=== PATIENT | male | born 1955 | race Caucasian/White ===

== ENCOUNTER 2019-08-14 11:31 | Outpatient (CLI) | payer OTHER, SELFPAY ==
--- NOTE | ~2019-08-14 | US_ITS ---
EXAMINATION: US abdomen complete EXAM DATE: 08/14/2019 13:05 INDICATION: Right upper quadrant pain. STAT examination. TECHNIQUE: Multiple grayscale and Doppler images of the complete abdomen were obtained (by a technolo gist who performed the scan) and subsequently reviewed. There is no prior study for comparison. FINDINGS: The abdominal aorta is normal in caliber. Visualized portion IVC is patent. The pancreatic head a nd body are normal in appearance. The pancreatic tail is not visualized. The liver has normal echogenicity and contour. There are no focal liver lesions identified. There is no evidence of intrahepatic biliary duct dilation. Portal venous flow was seen in the hepatopedal , normal direction and has normal Doppler waveform. Common bile duct measures 4 mm, which is normal. Gallbladder is moderately distended with echogenic m aterial, debris inside, edematous and mildly thickened gallbladder wall at 4 mm with small amount per icholecystic fluid. Technologist performing exam reports patient did not demonstrate sonographic Murp hy's sign. Please note that this sign is less reliable in patients who have received pain medication . Right kidney: There is normal contour and echogenicity. It measures 13.5 x 5.9 x 6.4 centimeters. There are no focal renal lesions identified. There is no hydronephrosis. Left kidney: There is normal contour and echogenicity. It measures 12.8 x 6.8 x 6.5 centimeters. T here are no focal renal lesions identified. There is no hydronephrosis. The spleen is borderline enlarged. IMPRESSION: 1. Findings suspicious for acute cholecystitis. 2. Borderline splenomegaly. I discussed findings with DAMON Alanis at 08/14/2019 13:44 GORING CUTTER. Reviewed, dictated and finalized at location B. NG CUTTER
[2019-08-14 14:40] LABS: Alanine Aminotransferase 28 U/L (4-50); Albumin Level 4.2 g/dL (3.5-5.1); Alkaline Phosphatase 111 U/L (38-126); Amylase 88 U/L (30-110); Aspartate Amino Transferase 31 U/L (17-59); Bilirubin,Total 0.8 mg/dL (0.2-1.3); Blood Urea Nitrogen 16 mg/dL (9-20); Calcium 9.7 mg/dL (8.4-10.2); Carbon Dioxide 32 mmol/L (22-30); Chloride 94 mmol/L (98-107); Estimated Glomerular Filt Rate > 60; Glucose 118 mg/dL (75-110); Lipase 252 U/L (23-300); Potassium 3.7 mmol/L (3.4-5.0); Sodium 137 mmol/L (137-145)
== END 2019-08-14 11:32 | disposition home or self-care (01) ==
LOC: ANHIMG 11:34
PROVIDERS: PCP Family Medicine; Visit Provider Physician Assistant Medical
DX: R10.11 Right upper quadrant pain (principal)
CPT/HCPCS: 36415; 76700; 80053; 82150; 83690

== ENCOUNTER 2019-08-14 15:06 | Inpatient (IN) | payer OTHER, SELFPAY ==
[2019-08-14 15:15] VITALS: BP 128/65; PULSE 94; RESP 15; TEMP 36.9; O2SAT 96; BMI 31.9
--- NOTE | 2019-08-14 15:24 | ECG_ITS ---
Measurements Intervals [place] Rate: 97 P: -3 [place]: 131 QRS: 30 QRSD: 93 T: 11 QT: 336 QTc: 428 Interpretive Statements SINUS RHYTHM CONSIDER INFERIOR INFARCT, AGE INDETERMINATE ABNORMAL ECG Electronically Signed On 08-14-2019 18:56:49 HOME ENERGY INSPECTOR by Preet Sharpe D.O.
--- NOTE | 2019-08-14 15:30 | ADMGEN ---
This patient, Randall Stevenson, was admitted to 2 Medical Room 261-01. Patient/family oriented to hospital policies and general routines including ID bracelet, bed and alarms, visiting hours, pain management, procedures, bathroom and other care routines, personal items, smoking policy, room service/diet, and visiting hours. Valuables list has been completed. Information on how to activate the Rapid Response Team has been discussed. Patient/Family are encouraged to report perceived risks to care and to ask questions if they do not understand what they are told or what they should do.
--- NOTE | 2019-08-14 16:37 | PM.IMHP ---
H&P: HPI History of Present Illness Chief complaint: Acute Cholecystitis Narrative: Randall Stevenson is a 63 year old male with a history of diabetes mellitus, hypertension, hyperlipidemia, and testosterone deficiency. He has a history of a burning type of right-sided chest pain and RUQ abdominal pain that started in 2016. He had his initial episode of this type of pain in 2016 and was evaluated at [facility] by our Immigration Manager. He had a full cardiac workup including a treadmill and Lexiscan stress test, echocardiogram, and labs. His entire workup was negative for any cardiac cause of the chest pain. The pain ended up resolving and hew as discharged home. He was told it was possibly pain related to his gallbladder, but he did not have any other issue with this until April of 2018. He had a similar episode but had family social issues going on and the pain resolved without intervention and he did not get evaluated for this at that time. The patient then had no recurrence again until last Tuesday, 10 days ago. He had eaten fried chicken, malay fries, and coleslaw, and a few hours later had a sudden onset of RUQ abdominal pain that radiated to his mid back and right lower chest. He reports aggravating symptoms included palpation. He tried to take Tums, Rolaids, and Pepto [id number]-slqyzeu, which did not alleviate his pain. He also had associated nausea but no vomiting. He then only ate clear liquids and applesauce for the next few days and his pain started to slowly improve. He overall still did not feel well. , 5 days ago, he ate an acutal meal which included a bourbon flavored chicken and rice. Shortly after this meal, he states the pain returned and was severe. He again tried the same [id number] medications without much relief. He had nausea but no vomiting. The pain was the same as all previous occasions. He dealt with this for a few days and the pain was not subsiding, so he called his PCP yesterday and saw a provider in their office today. She sent him for an abdominal ultrasound which showed moderate gallbladder distention with echogenic material, debris inside, edematous and mildly thickened gallbladder wall with a small amount of pericholecystic fluid, concerning for acute cholecystitis. CMP, lipase, and amylase were ordered and were unremarkable. Our service was contacted for the possible acute cholecystitis and the patient is now being directly admitted to the medical floor by Dr. Medley for surgical evaluation. The patient is now seen on the medical floor. He appears comfortable. He states he is still having RUQ burning abdominal pain and points just below his right ribs. He rates his pain at a 4/10 on a pain scale and states it radiates to his back. Denies nausea at this time. Reports having a low-grade fever of 99 F Tuesday, four days ago. No fevers since. Reports little oral intake over the past few days due to the pain and has not had a bowel movement for 2 days. Otherwise, no change in his bowel habits that he is aware of. No other complaints at this time. Review of Systems Review of Systems: All systems reviewed & are unremarkable except as noted in HPI and below Constitutional: Constitutional: Reports as per HPI, Denies chills, Denies excessive sweating, Denies fatigue, Denies headache(s) and Denies weakness Eyes: Eyes: Denies change in vision and Denies eye pain ENT: Denies dysphagia, Denies dizziness, Denies dry mouth, Denies headache(s), Denies hearing loss and Denies mouth pain Cardiovascular: Cardiovascular: Denies chest pain, Denies pedal edema, Denies radiating jaw, neck or arm pain, Denies dyspnea, Denies dyspnea on exertion and Reports other (burning in his right lower chest near RUQ of abdomen) Respiratory: Respiratory: Denies cough, Denies dyspnea, Denies dyspnea on exertion and Denies wheezing Gastrointestinal: Gastrointestinal: Reports as per HPI, Reports abdominal pain (RUQ r/t back), Denies bloating, Reports c
[2019-08-14 16:54] LABS: Basophils Absolute Auto 0.1 K/mm3 (0.0-0.1); Basophils Percent Auto 0.8 % (0.2-1.2); Eosinophils Absolute Auto 0.3 K/mm3 (0-0.3); Eosinophils Percent Auto 2.3 % (0-4.4); Hematocrit 45.2 % (42.0-52.0); Hemoglobin 15.3 g/dL (14.0-18.0); Immature Granulocyte Percent A 0.7 % (0-0.5); Lymphocytes Absolute Auto 2.66 K/mm3 (0.9-3.2); Lymphocytes Percent Auto 19.9 % (18.3-44.2); Mean Corpuscular HGB Conc 33.8 g/dl (32-36); Mean Corpuscular Hemoglobin 29.5 pg (26-34); Mean Corpuscular Volume 87.3 fl (80-100); Mean Platelet Volume 9.5 fl (7.4-10.4); Monocytes Absolute Auto 1.1 K/mm3 (0.1-0.6); Monocytes Percent Auto 8.5 % (2.6-8.5); Neutrophils Absolute Auto 9.1 K/mm3 (1.3-6.7); Neutrophils Percent Auto 67.8 % (45.5-73.1); Platelet Count Result 391 k/mm3 (150-375); Red Blood Count 5.18 M/mm3 (4.6-6.20); Red Cell Distribution Width 12.7 % (11.5-14.5); White Blood Count 13.4 K/mm3 (4.5-10.0)
[2019-08-14] MEDS: SODIUM CHLORIDE 0.9% IV 1,000 ML 100 ML IV CONT (16:56)
[2019-08-14 16:57] VITALS: BMI 31.2
--- NOTE | 2019-08-14 21:30 | WPDCN ---
Assessment and Plan Assessment and plan (1) Cholecystitis: Code(s): K81.9 - Cholecystitis, unspecified Status: Acute Assessment and Plan: Currently on Zosyn for acute cholecystitis. Plan for cholecystectomy tomorrow per Dr. Medley. (2) Type 2 diabetes mellitus without complications: Code(s): E11.9 - Type 2 diabetes mellitus without complications Status: Acute Assessment and Plan: Well controlled with recent A1c of 6.7. Hold oral hypoglycemics at this time. Initiate sliding scale insulin, Accu-Cheks, and hypoglycemic protocol. (3) Essential (primary) hypertension: Code(s): I10 - Essential (primary) hypertension Status: Acute Assessment and Plan: Blood pressures were reviewed and they are well controlled. Continue antihypertensives and monitor closely. (4) Mixed hyperlipidemia: Code(s): E78.2 - Mixed hyperlipidemia Status: Acute Assessment and Plan: Continue home medication. HPI Data of Consult Date/Time: 08/14/19 21:30 Requesting Physician: Isac Medley MD Primary Care Provider: Dion Ryan MD Consult Narrative Narrative: Randall Stevenson is a 63 year old male with hypertension, hyperlipidemia, GERD, and diabetes whom the hospitalist service has been consulted for medical management in the perioperative phase. He was admitted to Dr. Medley earlier today for further treatment of acute cholecystitis. Patient notes that a week ago last Tuesday after eating a large dinner he developed right upper quadrant pain radiating into the back. It is described as squeezing and burning in nature, and was associated with extreme nausea. He has had several other similar episodes and was seen at his primary care provider's office today. Right upper quadrant ultrasound showed findings concerning for acute cholecystitis and he is being admitted in this setting. At the time my evaluation, he is not having any significant pain. He denies fever, chills, sweats, nausea, and vomiting. No chest pain or shortness of breath. No diarrhea. No history of cardiac or pulmonary disease. His medical history is significant for type 2 diabetes, which he states is well controlled with recent A1c of 6.7. He is also on medication for hypertension and hyperlipidemia, both which he believes are well controlled. Review of Systems Review of Systems: All systems reviewed & are unremarkable except as noted in HPI and below [facility] Past Medical History Medical History (Updated 08/14/19 @ 23:36 by Haydee Simmons PA-C) Essential (primary) hypertension GERD (gastroesophageal reflux disease) Kidney stones Mixed hyperlipidemia Testosterone deficiency Type 2 diabetes mellitus without complications Recent hemoglobin A1c was 6.7. Surgical History Surgical History History of appendectomy Open appendectomy at the age of 16. History of carpal tunnel release 1998 History of left inguinal hernia repair Inguinal hernia repair in 1963. Family History Family History Father Hypertension Cerebrovascular accident Family history of coronary artery disease Gallbladder disease Mother Hypertension Family history of diabetes mellitus in first degree relative Family history of coronary artery disease Sibling Hypertension Grandparent Family history of lung cancer Diabetes mellitus Social History Social History (Updated 08/14/19 @ 23:36 by Haydee Simmons PA-C) Social History: The patient lives at home with his and designates her as the decision maker. They have one son. He does not have a POA. 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 Post-operatively he wishes to be a DNR. He has not completed DNR paperwork yet at this time prior to his hospitalization. Smoking status: Never smoker Alcohol intake: never Substance use
[2019-08-14 22:00] VITALS: BP 129/85; PULSE 87; RESP 21; TEMP 36.4; O2SAT 100
[2019-08-15] VITALS (13 sets, daily range): BP systolic 120–155; BP diastolic 66–85; PULSE 18–105; RESP 16–94; TEMP 36–36.9; O2SAT 92–100
--- NOTE | 2019-08-15 | ECHO_ITS ---
Patient Info Name: Randall Stevenson Age: 63 years : 1955 Gender: Male Ht: 69 in Wt: 211 lbs BSA: 2.19 m2 HR: 87 bpm BP: 120 / 68 mmHg Heart Rhythm: Sinus Rhythm Technical Quality: Good Exam Date: 08/15/2019 11:11 AM Exam Location: [facility] Pulmonary Patient Status: Inpatient Admit Date: 08/14/2019 Staff Ordering Physician: Morgan Conn PA-C Gas Tester: Urbano Santos RDCS Attending Provider: Isac Medley MD Referring Physician: Fabien FONTENOT; Exam Type: CA echo doppler color flow Study Info Indications R01.1 - Cardiac murmur, unspecified Complete two-dimensional, color flow and Doppler transthoracic echocardiogram is performed. Strain analysis performed. History/Risk Factors Murmur. Summary 1. Left ventricular chamber dimension is normal. 2. Left ventricular systolic function is normal, estimated at 60-65%. 3. There is mildly increased left ventricular wall thickness. 4. The left ventricular diastolic function is grade I diastolic dysfunction. 5. E/e' 9 is minimally elevated. 6. The aortic valve is not well seen in parasternal long axis view. 7. There is severe aortic valve sclerosis. 8. Based on gradients and velocity, there is mild aortic stenosis. 9. There is mild aortic valve stenosis with a peak velocity of 202 cm/s, mean gradient of 10 mmHg, and aortic valve area of 2.0 cm2. 10. Mild mitral annular calcification. Left Ventricle E/e' 9 is minimally elevated. Left ventricular chamber dimension is normal. Left ventricular systolic function is normal, estimated at 60-65%. There is mildly increased left ventricular wall thickness. The left ventricular diastolic function is grade I diastolic dysfunction. Right Ventricle Right ventricular chamber dimension is normal. Right ventricular systolic function is normal. Left Atria Left atrial chamber dimension is normal. Right Atria Right atrial chamber dimension is normal. Aortic Valve The aortic valve is not well seen in parasternal long axis view. Based on gradients and velocity, there is mild aortic stenosis. The aortic valve is trileaflet. There is severe aortic valve sclerosis. There is mild aortic valve stenosis with a peak velocity of 202 cm/s, mean gradient of 10 mmHg, and aortic valve area of 2.0 cm2. There is no aortic valve regurgitation. Pulmonic Valve There is no pulmonic regurgitation. Mitral Valve Mild mitral annular calcification. There is no mitral valve stenosis. There is no mitral valve regurgitation. Tricuspid Valve There is no tricuspid valve regurgitation. Pericardium/Pleural There is no pericardial effusion. Inferior Vena Cava Normal inferior vena cava with >50% collapse upon inspiration consistent with normal right atrial pressure, 5 mmHg. Aorta The aortic root size at the sinus of Valsalva is normal. Left Ventricular Outflow Tract Name Value Normal LVOT 2D LVOT Diameter 2.1 cm LVOT Doppler LVOT Peak Gradient 6 mmHg LVOT Mean Gradient 3 mmHg LVOT VTI 21 cm L
[2019-08-15] MEDS: SODIUM CHLORIDE 0.9% IV 1,000 ML 100 ML IV CONT (05:21)
[2019-08-15 06:01] LABS: Alanine Aminotransferase 25 U/L (4-50); Albumin Level 3.8 g/dL (3.5-5.1); Alkaline Phosphatase 89 U/L (38-126); Aspartate Amino Transferase 28 U/L (17-59); Bilirubin,Total 0.8 mg/dL (0.2-1.3); Blood Urea Nitrogen 14 mg/dL (9-20); Calcium 8.9 mg/dL (8.4-10.2); Carbon Dioxide 29 mmol/L (22-30); Chloride 96 mmol/L (98-107); Estimated CRCL calculation 97 ml/min; Estimated Glomerular Filt Rate > 60; Glucose 126 mg/dL (75-110); Magnesium 1.7 mg/dL (1.6-2.3); Potassium 3.9 mmol/L (3.4-5.0); Sodium 136 mmol/L (137-145)
[2019-08-15 06:01] LABS: Glucose Point of Care 132 (65-105)
[2019-08-15 06:02] LABS: Basophils Absolute Auto 0.1 K/mm3 (0.0-0.1); Basophils Percent Auto 0.7 % (0.2-1.2); Eosinophils Absolute Auto 0.5 K/mm3 (0-0.3); Eosinophils Percent Auto 3.2 % (0-4.4); Hematocrit 44.8 % (42.0-52.0); Hemoglobin 14.7 g/dL (14.0-18.0); Immature Granulocyte Absolute 0.06 K/mm3 (0.00-0.031); Immature Granulocyte Percent A 0.4 % (0-0.5); Lymphocytes Absolute Auto 2.46 K/mm3 (0.9-3.2); Lymphocytes Percent Auto 17.7 % (18.3-44.2); Mean Corpuscular HGB Conc 32.8 g/dl (32-36); Mean Corpuscular Hemoglobin 29.1 pg (26-34); Mean Corpuscular Volume 88.7 fl (80-100); Mean Platelet Volume 9.7 fl (7.4-10.4); Monocytes Absolute Auto 1.1 K/mm3 (0.1-0.6); Monocytes Percent Auto 8.2 % (2.6-8.5); Neutrophils Absolute Auto 9.7 K/mm3 (1.3-6.7); Neutrophils Percent Auto 69.8 % (45.5-73.1); Platelet Count Result 390 k/mm3 (150-375); Red Blood Count 5.05 M/mm3 (4.6-6.20); White Blood Count 13.9 K/mm3 (4.5-10.0)
--- NOTE | 2019-08-15 07:52 | WPDHPUPDATE1 ---
History and Physical Update Update Date/Time: 08/15/19 07:52 History and Physical has been reviewed, including an updated exam of the patient. There are NO changes in the patient's condition. Risks, benefits, and alternatives Of a laparoscopic cholecystectomy with possible intraoperative cholangiogram, possible open cholecystectomy have been discussed and questions answered. Patient agrees to proceed with procedure.
--- NOTE | 2019-08-15 08:24 | WPDANESEPP ---
Anes - Eval Pre Procedure Procedure: Operation Date: 08/15/19 13:00 Proposed Procedures p Laparoscopic Cholecystectomy, Possible Intraoperative Cholangiogram, Possible Open - Isac Medley MD Date/Time: 08/15/19 08:24 Surgeon: Galindo Pre Op Diagnosis: Acute Cholecystitis Patient Data Age: 63 Gender: M Height: 5 ft 9 in Weight: 96.1 kg Last Vital Signs Temp 97.1 F L 08/15/19 06:00 Pulse 83 08/15/19 06:00 Resp 21 H 08/15/19 06:00 BP 120/68 08/15/19 06:00 Pulse Ox 100 08/15/19 06:00 Allergies Allergy/AdvReac Type Severity Reaction Status Date / Time Penicillins Allergy Unknown Unknown Verified 08/14/19 10:17 Home Medications Medication Instructions Recorded Confirmed Type exenatide microspheres 2 mg/0.85 2 mg SUB-Q Q7D #3.4 ml 06/13/19 08/14/19 Rx mL subcutaneous auto-injector sitagliptin 100 mg tablet 100 mg PO DAILY #90 tablet 06/28/19 08/14/19 Rx blood sugar diagnostic #10 each 08/03/19 History canagliflozin 150 mg-metformin 1 tablet PO BID 08/03/19 08/14/19 History 1,000 mg tablet lancets #50 each 08/03/19 History lisinopril 10 mg tablet 10 mg PO DAILY 08/03/19 08/14/19 History rosuvastatin 20 mg tablet 20 mg PO DAILY 08/03/19 08/14/19 History sildenafil 100 mg tablet 100 mg PO DAILY PRN #30 tablet 08/03/19 08/14/19 Rx omeprazole 40 mg capsule,delayed 40 mg PO DAILY #30 cap 08/14/19 08/14/19 Rx release testosterone 2 pump TOPICAL DAILY 08/14/19 08/14/19 History Laboratory Tests 08/14/19 08/14/19 08/15/19 16:42 16:42 04:52 WBC 13.4 K/mm3 H K/mm3 13.9 K/mm3 H K/mm3 (4.5-10.0) (4.5-10.0) RBC 5.18 M/mm3 M/mm3 5.05 M/mm3 M/mm3 (4.6-6.20) (4.6-6.20) Hgb 15.3 g/dL g/dL 14.7 g/dL g/dL (14.0-18.0) (14.0-18.0) Hct 45.2 % % 44.8 % % (42.0-52.0) (42.0-52.0) MCV 87.3 fl fl 88.7 fl fl (80-100) (80-100) MCH 29.5 pg pg 29.1 pg pg (26-34) (26-34) MCHC 33.8 g/dl g/dl 32.8 g/dl g/dl (32-36) (32-36) RDW 12.7 % % 13.0 % % (11.5-14.5) (11.5-14.5) Plt Count 391 k/mm3 H k/mm3 390 k/mm3 H k/mm3 (150-375) (150-375) MPV 9.5 fl fl 9.7 fl fl (7.4-10.4) (7.4-10.4) Immature Gran % (Auto) 0.7 % H % 0.4 % % (0-0.5) (0-0.5) Neut % (Auto) 67.8 % % 69.8 % % (45.5-73.1) (45.5-73.1) Lymph % (Auto) 19.9 % % 17.7 % L % (18.3-44.2) (18.3-44.2) [place] % (Auto) 8.5 % % 8.2 % % (2.6-8.5) (2.6-8.5) Eos % (Auto) 2.3 % % 3.2 % % (0-4.4) (0-4.4) Baso % (Auto) 0.8 % % 0.7 % % (0.2-1.2) (0.2-1.2) Lymph # (Auto) 2.66 K/mm3 K/mm3 2.46 K/mm3 K/mm3 (0.9-3.2) (0.9-3.2) [place] # (Auto) 1.1 K/mm3 H K/mm3 1.1 K/mm3 H K/mm3 (0.1-0.6) (0.1-0.6) Eos # (Auto) 0.3 K/mm3 K/mm3 0.5 K/mm3 H K/mm3 (0-0.3) (0-0.3) Baso # (Auto) 0.1 K/mm3 K/mm3 0.1 K/mm3 K/mm3 (0.0-0.1) (0.0-0.1) Abs Immat Gran (auto) 0.10 K/mm3 H K/mm3 0.06 K/mm3 H K/mm3 (0.00-0.031) (0.00-0.031) Absolute Neuts (auto) 9.1 K/mm3 H K/mm3 9.7 K/mm3 H K/mm3 (1.3-6.7) (1.3-6.7) Absolute Nucleated RBC 0.0 K/mm3 K/mm3 0.0 K/mm3 K/mm3 (0.0-0.012) (0.0-0.012) Nucleated RBC % 0.0 % % 0.0 % % (0.0-0.2) (0.0-0.2) Sodium Potassium Chloride Carbon Dioxide BUN Creatinine Estim Creat Clear Calc Estimated GFR Glucose POC Capillary Glucose Calcium Magnesium Total Bilirubin AST ALT Alkaline Phosphatase Total Protein Albumin Blood Type O Positive Antibody Screen Negative 08/15/19 08/15/19 04:52 05:25 WBC RBC Hgb Hct MCV MCH MCHC RDW Plt Count MPV Immature Gran % (Auto)
--- NOTE | 2019-08-15 08:27 | ECG_ITS ---
Measurements Intervals [place] Rate: 87 P: -17 [place]: 148 QRS: 13 QRSD: 92 T: 0 QT: 349 QTc: 422 Interpretive Statements SINUS RHYTHM BORDERLINE T WAVE ABNORMALITY- INFERIOR LEADS BASELINE ARTIFACT- I, III, AVL BORDERLINE ECG Electronically Signed On 08-15-2019 9:55:15 PATIENT RESOURCE COORDINATOR by Preet Sharpe D.O.
[2019-08-15] MEDS: CHLORHEXIDINE GLUCONATE 4% SOL 120 ML BTL 1 APPLIC TOPICAL (08:39)
[2019-08-15] MEDS: PANTOPRAZOLE SODIUM IV 40 MG VIAL IV PUSH ×2 (08:40→21:27)
[2019-08-15] MEDS: lisinopriL 10 MG TABLET PO (08:40)
--- NOTE | 2019-08-15 10:12 | PM.IMPN ---
Progress Note: A&P Assessment and Plan (1) Cholecystitis: Code(s): K81.9 - Cholecystitis, unspecified Status: Acute Assessment and Plan: Patient is doing well today. Will be going for cholecystectomy per Dr. Medley later this afternoon. Possible slight murmur on exam; patient has no knowledge of murmur. Spoke with General Surgery; will order an echo this morning to be done prior to surgery. Currently on Zosyn for acute cholecystitis. Plan for cholecystectomy tomorrow per Dr. Medley. (2) Type 2 diabetes mellitus without complications: Code(s): E11.9 - Type 2 diabetes mellitus without complications Status: Acute Assessment and Plan: BGL 130s this morning. Well controlled with recent A1c of 6.7. Hold oral hypoglycemics at this time. Continue sliding scale insulin, Accu-Cheks, and hypoglycemic protocol. (3) Essential (primary) hypertension: Code(s): I10 - Essential (primary) hypertension Status: Acute Assessment and Plan: BP 120s sys today. Well controlled. Continue antihypertensives and monitor closely. (4) Mixed hyperlipidemia: Code(s): E78.2 - Mixed hyperlipidemia Status: Acute Assessment and Plan: No acute issues Continue home medication. Subjective Date/time seen: 08/15/19 10:12 This is a Hospitalist Consult Progress Note Interval history: Patient is a 63 yo M with history of hypertension, hyperlipidemia, GERD, and diabetes who is here for cholecystitis; Hospitalist service was consulted for medical management perioperatively. Patient states he has improved since last night. His pain has improved to just point tenderness in RUQ; it no longer radiates to the back. He had some night sweats last night, but otherwise states he has improved. Tolerated PO yesterday; no N/v. He denies f/c, headaches, dizziness, lightheadedness, changes in vision/hearing, n/v/d/c, cp/palpitations, changes in BMs, dysuria, hematuria, cloudy urine, calf pain/swelling b/l, s/sx of stroke. Review of Systems Review of Systems: All systems reviewed & are unremarkable except as noted in HPI and below Exam Narrative: Exam Narrative: Patient sitting upright in chair at time of visit. is in room visiting Const: General: healthy appearing, comfortable, no acute distress, well developed and diaphoretic (mildly) Nutritional Appearance: well nourished Orientation/consciousness: patient oriented x3 HENMT: Head: normocephalic and atraumatic General nose exam: Normal nares present Face and sinus: face symmetric Mouth: Yes lip normal and Yes moist mucous membranes Teeth and gingiva: fair dentition Throat: posterior oropharynx normal and uvula midline Eyes: General: appearance normal, both eyes and all related structures Sclera: sclerae normal Pupils: Equal, round and reactive pupils present EOM: EOMs intact bilaterally Neck: Neck: trachea midline and supple Resp: Effort & Inspection: normal respiratory effort Auscultation: clear to auscultation bilaterally Cardio: Rate: regular rate Rhythm: regular rhythm Heart sounds: Murmur heart sound present systolic (slight murmur appreciated) GI: Inspection: non-distended GI Palp: No abdominal tenderness Auscultation: Hypoactive bowel sounds present Skin: General skin exam: normal color and no rashes or lesions noted Neuro: General: patient oriented x3 and no focal motor deficits Extrem: Right lower extremity: no edema Left lower extremity: no edema Other: No calf ttp/swelling Psych: Mental Status: mental status grossly normal Affect: normal affect Objective Data Vital Signs Vital Signs: Vital Signs - 24 hr 08/14/19 15:15 08/14/19 22:00 08/15/19 06:00 Temperature 98.4 F 97.5 F L 97.1 F L Pulse Rate 94 87 83 Respiratory Rate 15 21 H 21 H Blood
--- NOTE | 2019-08-15 11:15 | PCCCNOTE ---
On 08/15/19, the student, [Kellen Aleman ], provided care and completed [facility] documentation on this patient. I have reviewed the student's documentation and agree with the findings.
--- NOTE | 2019-08-15 11:49 | PC.NURSE ---
Pt to preop via hospital bed, IV intact.
--- NOTE | 2019-08-15 11:58 | P.PNAN_ITS ---
Anes - Eval Final PreProcedure Day of Procedure 08/15/19 11:58 Date of Service: 08/15/19 Procedure(s): CA modified lead EKG Accession Number(s): [id number] cc: ~ Measurements Intervals [place] Rate: 87 P: -17 [place]: 148 QRS: 13 QRSD: 92 T: 0 QT: 349 QTc: 422 Interpretive Statements SINUS RHYTHM BORDERLINE T WAVE ABNORMALITY- INFERIOR LEADS BASELINE ARTIFACT- I, III, AVL BORDERLINE ECG Electronically Signed On 08-15-2019 9:55:15 SAAS ARCHITECT by Preet Sharpe D.O. Dictated By: Preet Sharpe DO 08/15/19 0947 Patient weight: obese Heart: regular rate and rhythm Lungs: clear to auscultation and normal air movement Airway: Mallampati scale class II Neurological: alert and oriented Last oral intake: >/= 8 hours ASA classification: III Emergent: no Anesthetic plan: proceed Anesthesia type and monitoring: general ETT Informed Consent: The patient's anesthetic plan and its attendant risks and benefits were discussed with the patient/family/POA. Questions were solicited and answers provided to the satisfaction of the patient/family/POA.
[2019-08-15] MEDS: LACTATED RINGERS 1,000 ML 30 ML IV CONT ×2 (12:01→16:45)
[2019-08-15] MEDS: BUPIVACAINE/EPINEPHRINE 0.5% 30 ML VIAL 20 ML INFILTRATE (13:43)
--- NOTE | 2019-08-15 16:47 | PM.PROC ---
Procedure Note - Detailed Date of procedure: 08/15/19 Pre-op diagnosis: Acute Cholecystitis Post-op diagnosis: same (With gangrenous change) Procedure performed: Laparoscopic cholecystectomy (partial). Description of procedure: Procedure Details: Patient was seen preoperatively in the holding area and risks, benefits and alternatives confirmed. Patient was taken to the operating room and general anesthesia was induced. A time out was then preformed with the surgery team confirming patient and site of surgery. The abdomen was prepped and draped in the usual sterile fashion. Incision was made just below the umbilicus. Two stay sutures of O- Vicryl were used to elevate the mid-line fascia beneath the umbilicus and a small incision was made under direct vision. The peritoneum was entered. The 12 mm Ley cannula was introduced under direct vision. First under low flow and then under high flow the abdomen was insufflated with carbon dioxide never exceeding a pressure of 14. Three 5 mm trocars were then introduced under direct vision. The following trocars were introduced under direct vision: a 12 mm in the epigastrium and two 5 mm trocars along the right costal margin. Upon initial dissection of the gallbladder was noted that the omentum was densely adherent to the entire inferior surface of the gallbladder. After dissecting this down from the upper 1/3 we decompressed the gallbladder with a large trocar needle and 20 cc of fluid was sent for Gram stain and C&S. Subsequently gallbladder was able to be grasped and we carefully slowly dissected all the adhesive omentum away from it. At its neck however we found that the duodenum was densely adherent to the neck of the gallbladder and no structures were easily identified. Therefore, at this point I decided to the start dissecting the gallbladder down from the top. I carefully took this down about a [address] posteriorly so that the gallbladder was coming off its bed in the liver anteriorly. Then we carefully suctioned away fluid near the neck of the gallbladder and I chose a spot approximately 2 cm up front from what appeared to be the junction of the gallbladder with the cystic duct and carefully incise the inferior wall the gallbladder. Both medial and laterally I then carefully incised the wall the gallbladder leaving some of the back wall the gallbladder posteriorly on the liver bed and then about another 2 cm up I carefully cauterized through the back wall the gallbladder and then we grasped this and lifted the back wall the gallbladder and dissected it up off of the liver bed as we usually would. There was no flow of bile from the cystic duct internally. Multiple black stones were removed either with suction or with the 10 mm spoon grasper. Once the gallbladder was then was completely dissected off its bed in the liver we achieved hemostasis with the spatula on the cautery. Gallbladder was placed in an endobag that was brought through the 12 mm port site at the umbilicus while we watched through the 12 mm port site at the epigastrium. Several small stones were also put in the bag and then the gallbladder was removed through the umbilical port site after enlarging this by about 1 cm in a cephalad direction. I still had to pull hard to get the gallbladder and the bag out of the abdomen. Once the gallbladder was out I then carefully put our instruments back and lifted the liver and suctioned and irrigated the area underneath liver. We checked for hemostasis in the gallbladder bed and appeared good. There was no bile leakage. Following this a flat 10 Thai drain was placed through the epigastric 12 mm port and pulled out the most lateral 5 mm port. This was positioned near the junction of the gallbladder and the cystic duct and underneath the liver in this area. This was sutured into place with 3 0 nylon and subsequently covered with a split 2 x 2 and Tegaderm. Following this the 12 mm port site at the epi
[2019-08-15 17:05] LABS: Glucose Point of Care 161 (65-105)
--- NOTE | 2019-08-15 18:09 | SUR.PHASEI ---
2736 SBAR FAXED FLOOR NOTIFIED
--- NOTE | 2019-08-15 18:53 | PC.NURSE ---
Pt returned to floor via hospital bed.
[2019-08-15 19:13] LABS: Glucose Point of Care 162 (65-105)
[2019-08-15] MEDS: SENNA/DOCUSATE SODIUM TABLET 2 TAB PO (21:30)
[2019-08-16] MEDS: INSULIN ASPART (*BKC) 100 UNITS/ML SUB-Q ×2 (00:18→12:22)
[2019-08-16 00:53] LABS: Glucose Point of Care 237 (65-105)
[2019-08-16] MEDS: SODIUM CHLORIDE 0.9% IV 1,000 ML 100 ML IV CONT (02:39)
[2019-08-16 06:00] VITALS: BP 152/83; PULSE 97; RESP 20; TEMP 37.1; O2SAT 94
[2019-08-16 06:00] LABS: Basophils Absolute Auto 0.1 K/mm3 (0.0-0.1); Basophils Percent Auto 0.4 % (0.2-1.2); Eosinophils Absolute Auto 0.1 K/mm3 (0-0.3); Eosinophils Percent Auto 0.8 % (0-4.4); Hematocrit 40.7 % (42.0-52.0); Hemoglobin 13.7 g/dL (14.0-18.0); Immature Granulocyte Absolute 0.07 K/mm3 (0.00-0.031); Immature Granulocyte Percent A 0.5 % (0-0.5); Lymphocytes Absolute Auto 2.41 K/mm3 (0.9-3.2); Lymphocytes Percent Auto 17.1 % (18.3-44.2); Mean Corpuscular HGB Conc 33.7 g/dl (32-36); Mean Corpuscular Hemoglobin 29.1 pg (26-34); Mean Corpuscular Volume 86.6 fl (80-100); Mean Platelet Volume 9.4 fl (7.4-10.4); Monocytes Absolute Auto 1.2 K/mm3 (0.1-0.6); Monocytes Percent Auto 8.4 % (2.6-8.5); Neutrophils Absolute Auto 10.3 K/mm3 (1.3-6.7); Neutrophils Percent Auto 72.8 % (45.5-73.1); Platelet Count Result 422 k/mm3 (150-375); Red Cell Distribution Width 12.5 % (11.5-14.5); White Blood Count 14.1 K/mm3 (4.5-10.0)
[2019-08-16 06:07] LABS: Alanine Aminotransferase 41 U/L (4-50); Albumin Level 3.4 g/dL (3.5-5.1); Alkaline Phosphatase 84 U/L (38-126); Aspartate Amino Transferase 65 U/L (17-59); Bilirubin,Total 0.7 mg/dL (0.2-1.3); Blood Urea Nitrogen 14 mg/dL (9-20); Calcium 8.3 mg/dL (8.4-10.2); Carbon Dioxide 26 mmol/L (22-30); Chloride 98 mmol/L (98-107); Estimated CRCL calculation 97 ml/min; Estimated Glomerular Filt Rate > 60; Glucose 123 mg/dL (75-110); Potassium 3.7 mmol/L (3.4-5.0); Sodium 134 mmol/L (137-145)
[2019-08-16 06:36] LABS: Glucose Point of Care 114 (65-105)
[2019-08-16] MEDS: PANTOPRAZOLE SODIUM IV 40 MG VIAL IV PUSH (08:05)
[2019-08-16] MEDS: lisinopriL 10 MG TABLET PO (08:05)
[2019-08-16] MEDS: ROSUVASTATIN 10 MG TABLET 20 MG PO (08:06)
[2019-08-16] MEDS: ENOXAPARIN 40 MG/0.4 ML SYRINGE SUB-Q (08:06)
--- NOTE | 2019-08-16 10:12 | P.PNAN_ITS ---
Anes - Prog Note Post-Op Date/Time: 08/16/19 10:12 Vital Signs: Last Vital Signs Temp 98.7 F 08/16/19 06:00 Pulse 97 08/16/19 06:00 Resp 20 08/16/19 06:00 BP 152/83 H 08/16/19 06:00 Pulse Ox 94 08/16/19 06:00 I/O: Intake & Output 08/15/19 08/16/19 08/16/19 23:59 07:59 15:59 Intake Total 500 750 240 Output Total 565 690 Balance -65 60 240 Laboratory Tests 08/16/19 04:54 08/16/19 04:54 08/15/19 08/15/19 08/16/19 16:45 18:47 00:15 WBC RBC Hgb Hct MCV MCH MCHC RDW Plt Count MPV Immature Gran % (Auto) Neut % (Auto) Lymph % (Auto) [place] % (Auto) Eos % (Auto) Baso % (Auto) Lymph # (Auto) [place] # (Auto) Eos # (Auto) Baso # (Auto) Abs Immat Gran (auto) Absolute Neuts (auto) Absolute Nucleated RBC Nucleated RBC % Sodium Potassium Chloride Carbon Dioxide BUN Creatinine Estim Creat Clear Calc Estimated GFR Glucose POC Capillary Glucose 161 H 162 H 237 H Calcium Total Bilirubin AST ALT Alkaline Phosphatase Total Protein Albumin 08/16/19 08/16/19 08/16/19 04:54 04:54 06:04 WBC 14.1 H RBC 4.70 Hgb 13.7 L Hct 40.7 L MCV 86.6 MCH 29.1 MCHC 33.7 RDW 12.5 Plt Count 422 H MPV 9.4 Immature Gran % (Auto) 0.5 Neut % (Auto) 72.8 Lymph % (Auto) 17.1 L [place] % (Auto) 8.4 Eos % (Auto) 0.8 Baso % (Auto) 0.4 Lymph # (Auto) 2.41 [place] # (Auto) 1.2 H Eos # (Auto) 0.1 Baso # (Auto) 0.1 Abs Immat Gran (auto) 0.07 H Absolute Neuts (auto) 10.3 H Absolute Nucleated RBC 0.0 Nucleated RBC % 0.0 Sodium 134 L Potassium 3.7 Chloride 98 Carbon Dioxide 26 BUN 14 Creatinine 0.80 Estim Creat Clear Calc 97 Estimated GFR > 60 Glucose 123 H POC Capillary Glucose 114 H Calcium 8.3 L Total Bilirubin 0.7 AST 65 H ALT 41 Alkaline Phosphatase 84 Total Protein 7.0 Albumin 3.4 L Patient Feedback: Patient satisfied with anesthetic care.
[2019-08-16] MEDS: ACETAMINOPHEN 500 MG TABLET PO (11:12)
[2019-08-16 11:48] LABS: Glucose Point of Care 208 (65-105)
--- NOTE | 2019-08-16 13:07 | PM.DS ---
DS: Diagnosis Admitting Diagnosis Admitting Diagnosis: Cholecystitis, unspecified Discharge Diagnosis (1) Acute calculous cholecystitis: Code(s): K80.00 - Calculus of gallbladder with acute cholecystitis without obstruction Status: Acute Assessment and Plan: S/p laparoscopic cholecystectomy on 08/15/[address] Medley. (2) Type 2 diabetes mellitus without complications: Code(s): E11.9 - Type 2 diabetes mellitus without complications Status: Acute (3) Essential (primary) hypertension: Code(s): I10 - Essential (primary) hypertension Status: Acute (4) Mixed hyperlipidemia: Code(s): E78.2 - Mixed hyperlipidemia Status: Acute (5) Testosterone deficiency: Code(s): E34.9 - Endocrine disorder, unspecified Status: Acute DS: Summary Hospital Course Reason for hospitalization: Randall Stevenson is a 63 year old male with a history of diabetes mellitus, hypertension, hyperlipidemia, and testosterone deficiency. He presented as a direct admit from his primary care office due to findings suspicious of acute cholecystitis on an abdominal ultrasound. He had been having RUQ abdominal pain and radiating chest pain as far back as 2016. The pain typically subsided without intervention. He then had a more acute episode of abdominal pain 10 days prior to admission that was exacerbated. He called his PCP and presented for an outpatient evaluation, which lead to ordering an abdominal ultrasound. After the final report, our service was contacted and the decision was made to directly admit the patient for surgical evaluation of possible acute on chronic cholecystitis. Hospital Course: The patient was admitted and discussion was had about his treatment options. LFTs and lipase were normal. WBC was elevated at 13,000. He was started on IV fluids, IV antibiotics, analgesics, and antiemetics. After evaluating the patient, the decision was made to proceed with a laparoscopic cholecystectomy by Dr. Medley on 08/15/19. Surgical findings revealed that he did indeed have what appeared to be acute cholecystitis with multiple black gallstones and some gangrenous changes. Due to the severity of his gallbladder, we did continue IV antibiotics until discharge and will be discharging him on 5 days or oral antibiotics per Dr. Medley's request. The patient was seen this morning, post op day 1. He reports doing well with tolerable pain. He has taken tylenol for pain and states this keeps it well controlled. Denies any nausea, vomiting, bloating, or chills. No fevers and his vital signs are stable. Voiding without difficulty. Reports flatus but no BM yet. We discussed when to take laxatives once discharged if no BM and to start taking stool softeners daily in the post-op period. I discussed all discharge care instructions with the patient and answered all of his questions. During surgery, he did have a PARISA drain placed and we will continue this on discharge. He is to record output daily and PRN and call on 08/21/19 to schedule follow-up and report output to Dr. Medley. Dr. Medley and I both separately educated the patient on care of the PARISA drain at home. I also discussed this with his . Pathology will be discussed in follow-up. I have also discussed the discharge plan and instructions with Dr. Medley who is okay with discharge. I called the Hospitalist who will be seeing the patient shortly and evaluating him for discharge. He stated he will also discuss the echo results with him. An echo was ordered during the hospital stay due to hearing a quiet murmur on exam pre-operatively. The echo showed a normal EF and severe aortic sclerosis and mild aortic stenosis. Hospitalist is recommending follow-up with PCP in 1-2 weeks to discuss this as well. Status at Discharge Functional status at discharge: independent ambulation Overall status at discharge: patient is progressing back to baseline Time Spent with Patient Time attestation: To
[2019-08-16 14:00] VITALS: BP 133/78; PULSE 95; RESP 16; TEMP 36.1; O2SAT 96
--- NOTE | 2019-08-16 14:30 | PM.IMPN ---
Progress Note: A&P Assessment and Plan (1) Cholecystitis: Code(s): K81.9 - Cholecystitis, unspecified Status: Deleted Assessment and Plan: Patient is doing well today. POD [address] Medley. No BMs, but passing gas. Tolerating PO Patient to be discharged on Levaquin per General Surgery Follow up with Surgery next week. (2) Type 2 diabetes mellitus without complications: Code(s): E11.9 - Type 2 diabetes mellitus without complications Status: Acute Assessment and Plan: BGL 100-200s today. Well controlled with recent A1c of 6.7. Resume oral hypoglycemics at discharge Further management per PCP (3) Essential (primary) hypertension: Code(s): I10 - Essential (primary) hypertension Status: Acute Assessment and Plan: BP 130s sys this afternoon. Well controlled. Continue antihypertensives Recommend follow up with PCP (4) Mixed hyperlipidemia: Code(s): E78.2 - Mixed hyperlipidemia Status: Acute Assessment and Plan: No acute issues Continue home medication. (5) Grade I diastolic dysfunction: Code(s): I51.9 - Heart disease, unspecified Status: Acute Assessment and Plan: Found on Echo yesterday along with mild aortic stenosis with severe aortic sclerosis. Discussed with patient and in room. Recommended follow up with PCP for further management/follow up. No acute issues. Subjective Date/time seen: 08/16/19 14:30 This is a Hospitalist Consult Progress Note Interval history: Patient is a 63 yo M with history of hypertension, hyperlipidemia, GERD, and diabetes who is here for cholecystitis, POD [address] Medley; Hospitalist service was consulted for medical management perioperatively. Patient states he is doing well today. Tolerating his diet well. Passing gas but no BMs yet. Abdominal pain is reasonable today. Otherwise no complaints. He denies f/c/ns, headaches, dizziness, lightheadedness, changes in vision/hearing, n/v/d/c, cp/palpitations, dysuria, hematuria, cloudy urine, calf pain/swelling b/l, s/sx of stroke. Review of Systems Review of Systems: All systems reviewed & are unremarkable except as noted in HPI and below Exam Narrative: Exam Narrative: Patient sitting upright in chair at time of visit. is in room visiting Const: General: healthy appearing, comfortable, no acute distress, well developed and diaphoretic (mildly) Nutritional Appearance: well nourished Orientation/consciousness: patient oriented x3 HENMT: Head: normocephalic and atraumatic General nose exam: Normal nares present Face and sinus: face symmetric Mouth: Yes lip normal and Yes moist mucous membranes Teeth and gingiva: fair dentition Throat: posterior oropharynx normal and uvula midline Eyes: General: appearance normal, both eyes and all related structures Sclera: sclerae normal Pupils: Equal, round and reactive pupils present EOM: EOMs intact bilaterally Neck: Neck: trachea midline and supple Resp: Effort & Inspection: normal respiratory effort Auscultation: clear to auscultation bilaterally Cardio: Rate: regular rate Rhythm: regular rhythm Heart sounds: Murmur heart sound present systolic (slight murmur appreciated on right upper sternal border) II/ GI: Inspection: non-distended GI Palp: Yes abdominal tenderness (mildly tender) Auscultation: normal bowel sounds and normoactive bowel sounds Skin: General skin exam: normal color and no rashes or lesions noted Neuro: General: patient oriented x3 and no focal motor deficits Cranial nerves: Yes Equal, round and reactive pupils present Extrem: Right lower extremity: no edema Left lower extremity: no edema Other: No calf ttp/swelling Psych: Mental Statu
== END 2019-08-16 15:18 | disposition home or self-care (01) | DRG 419 ==
PROVIDERS: Physician Assistant; Admitting Provider Surgery; PCP Family Medicine; Visit Provider Surgery
PROC: 0FT44ZZ Resection of Gallbladder, Percutaneous Endoscopic Approach (ICD-10-PCS; CPT 47562; principal; 2019-08-15 13:00)
DX: K80.00 Calculus of gallbladder with acute cholecystitis without obstruction (principal); K21.9 Gastro-esophageal reflux disease without esophagitis; I10 Essential (primary) hypertension; E11.9 Type 2 diabetes mellitus without complications; E78.2 Mixed hyperlipidemia; E34.8 Other specified endocrine disorders
CPT/HCPCS: 36415; 80053; 83735; 85025; 86850; 86900; 86901; 87070; 87075; 87205; 88304; 93005; 93306; A9270; C9113; J0131; J1100; J1650; J1815; J1885; J2250; J2405; J2543; J2704; J3010; J7030; J7120

== ENCOUNTER 2020-05-08 07:27 | Outpatient (CLI) | payer OTHER, SELFPAY ==
--- NOTE | 2020-05-08 07:39 | ECHO_ITS ---
Patient Info Name: Randall Stevenson Age: 64 years : 1955 Gender: Male Ht: 69 in Wt: 210 lbs BSA: 2.18 m2 HR: 78 bpm BP: 128 / 89 mmHg Heart Rhythm: Sinus Rhythm Exam Date: 05/08/2020 7:54 AM Exam Location: [facility] Patient Status: Outpatient Admit Date: 05/08/2020 Staff Ordering Physician: Preet Sharpe DO Engrosser: Angeli Hurst RDCS Attending Provider: Preet Sharpe DO Referring Physician: Dell ARMSTRONG; Exam Type: CA echo dop color flow w con Study Info Indications I35.0 - Nonrheumatic aortic (valve) stenosis Complete two-dimensional, color flow and Doppler transthoracic echocardiogram is performed. Summary 1. Complete two-dimensional, color flow and Doppler transthoracic echocardiogram is performed. 2. Left ventricular chamber dimension is normal. 3. Left ventricular systolic function is normal, estimated at 60-65%. 4. There is mildly increased left ventricular wall thickness. 5. The left ventricular diastolic function is grade I diastolic dysfunction. 6. E/e' 13 is mildly elevated. 7. Global longitudinal strain is mildly abnormal at -16.1%. 8. Left atrial chamber dimension is mildly enlarged. 9. There is severe aortic valve sclerosis. 10. There is mild aortic valve stenosis with a peak velocity of 160.34 cm/s, mean gradient of 6 mmHg, and aortic valve area of 1.84 cm2. Left Ventricle E/e' 13 is mildly elevated. Global longitudinal strain is mildly abnormal at -16.1%. Left ventricular chamber dimension is normal. Left ventricular systolic function is normal, estimated at 60-65%. There is mildly increased left ventricular wall thickness. The left ventricular diastolic function is grade I diastolic dysfunction. Right Ventricle Right ventricular chamber dimension is normal. Right ventricular systolic function is normal. Left Atria Left atrial chamber dimension is mildly enlarged. Right Atria Right atrial chamber dimension is normal. Aortic Valve The aortic valve is trileaflet. There is severe aortic valve sclerosis. There is mild aortic valve stenosis with a peak velocity of 160.34 cm/s, mean gradient of 6 mmHg, and aortic valve area of 1.84 cm2. There is no aortic valve regurgitation. Pulmonic Valve There is no pulmonic regurgitation. Mitral Valve There is no mitral valve stenosis. There is no mitral valve regurgitation. Tricuspid Valve There is no tricuspid valve regurgitation. Pericardium/Pleural There is no pericardial effusion. Inferior Vena Cava Normal inferior vena cava with >50% collapse upon inspiration consistent with normal right atrial pressure, 5 mmHg. Aorta The aortic root size at the sinus of Valsalva is normal. Left Ventricular Outflow Tract Name Value Normal LVOT 2D LVOT Diameter 2.03 cm LVOT Doppler LVOT Peak Gradient 3 mmHg LVOT Mean Gradient 2 mmHg LVOT VTI 16.75 cm LVOT VTI/AV VTI Ratio 0.57 LVOT Stroke Volume 54.08 ml LVOT CO 3.97 l/min L
== END 2020-05-08 07:28 | disposition home or self-care (01) ==
PROVIDERS: PCP Family Medicine; Visit Provider Internal Medicine Cardiovascular Disease
DX: I35.0 Nonrheumatic aortic (valve) stenosis (principal)
CPT/HCPCS: C8929

== ENCOUNTER 2020-07-13 15:04 | Emergency (ER) | payer OTHER, SELFPAY ==
--- NOTE | ~2020-07-13 | XR_ITS ---
XR knee LT 3V 07/13/2020 15:25 Indication: Knee pain Procedure: 3 views left knee Comparison: No prior studies for comparison. Findings: There is mild tricompartment osteoarthritis. Moderate joint effusion. No acute fracture or traumatic malalignment. No foreign bodies. Impression: 1: No acute fracture. 2: Moderate joint effusion. Reviewed, dictated and finalized at location A. [facility] MENDER Impression: 1: No acute fracture. 2: Moderate joint effusion.
[2020-07-13 15:06] VITALS: BP 188/90; PULSE 88; RESP 20; TEMP 37.2; O2SAT 100
--- NOTE | 2020-07-13 15:13 | ED.LOWEXIN ---
HPI - Extremity Injury (Lower) General Chief Complaint: Extremity Injury, Lower Stated Complaint: Left Knee Injury Time Seen by Provider: 07/13/20 15:10 History of Present Illness HPI Narrative: Tripped and fell this morning. Twisted his left knee in the fall. [place] a pop. Moderate pain and swelling. Able to bear weight, but feels unstable. Related Data Home Medications Medication Instructions Recorded Confirmed blood sugar diagnostic #10 each 08/03/19 04/18/20 lancets #50 each 08/03/19 04/18/20 Allergies Allergy/AdvReac Type Severity Reaction Status Date / Time Penicillins Allergy Intermediate rash Verified 07/14/20 14:27 Review of Systems Review of Systems: All systems reviewed & are unremarkable except as noted in HPI and below Constitutional: Constitutional: Denies weakness Cardiovascular: Cardiovascular: Denies chest pain Respiratory: Respiratory: Denies dyspnea Gastrointestinal: Gastrointestinal: Denies nausea Musculoskeletal: Musculoskeletal: Denies back pain Neurologic: Denies dizziness and Denies weakness PMFSH Past Medical History Medical History BMI 31.0-31.9,adult BMI 32.0-32.9,adult Essential (primary) hypertension GERD (gastroesophageal reflux disease) Grade I diastolic dysfunction Kidney stones Mixed hyperlipidemia Testosterone deficiency Type 2 diabetes mellitus without complications Recent hemoglobin A1c was 6.7. Surgical History Surgical History History of appendectomy Open appendectomy at the age of 16. History of carpal tunnel release 1998 History of cholecystectomy History of left inguinal hernia repair Inguinal hernia repair in 1963. Family History Family History Father Hypertension Cerebrovascular accident Family history of coronary artery disease Gallbladder disease Mother Hypertension Family history of diabetes mellitus in first degree relative Family history of coronary artery disease Sibling Hypertension Grandparent Family history of lung cancer Diabetes mellitus Social History Social History Social History: The patient lives at home with his and designates her as the decision maker. They have one son. He does not have a POA. Works as a accounting systems manager. Post-operatively he wishes to be a DNR. He has not completed DNR paperwork yet at this time prior to his hospitalization. Smoking status: Never smoker Alcohol intake: never Substance use: never Gender identity (if verbalized by the patient): Male Spiritual care concerns: No Agree to blood products: Yes Exam Const: General: healthy appearing, no acute distress and alert Orientation/consciousness: patient oriented x3 HENMT: Head: normal to inspection Resp: Effort & Inspection: normal respiratory effort Auscultation: clear to auscultation bilaterally, no rales, no rhonchi and no wheezes Cardio: Jugular venous distension: no JVD Rate: regular rate Rhythm: regular rhythm Heart sounds: no murmurs Skin: General skin exam: normal color Rashes: no rashes Wounds: no wounds Neuro: General: patient oriented x3, moves all extremities and no focal motor deficits Speech: normal speech Extrem: Other: Mild swelling to left knee. Otherwise grossly normal joint exam Psych: Appearance: well kempt Affect: normal affect Course Vital Signs Vital signs: Vital Signs Temperature 37.2 C 07/13/20 15:06 Pulse Rate 88 07/13/20 15:06 Respiratory Rate 20 07/13/20 15:06 Blood Pressure 188/90 H 07/13/20 15:06 Pulse Oximetry 100 07/13/20 15:06 Temperature 36.4 C L 07/13/20 16:29 Pulse Rate 82 07/13/20 16:29 Respiratory Rate 18 07/13/20 16:29 Blood Pressure 165/82 H 07/13/20 16:29 Pulse Oximetry 100 07/13/20 16:29 MDM - Ex
[2020-07-13 16:29] VITALS: BP 165/82; PULSE 82; RESP 18; TEMP 36.4; O2SAT 100
== END 2020-07-13 16:35 | disposition home or self-care (01) ==
PROVIDERS: Emergency Provider Emergency Medicine; PCP Family Medicine
DX: S83.92XA Sprain of unspecified site of left knee, initial encounter (principal); I10 Essential (primary) hypertension; K21.9 Gastro-esophageal reflux disease without esophagitis; E78.2 Mixed hyperlipidemia; E11.9 Type 2 diabetes mellitus without complications; W01.0XXA Fall on same level from slipping, tripping and stumbling without subsequent striking against object, initial encounter
CPT/HCPCS: 73562; 99283